=== PATIENT | male | born 1970 | race African-American/Black ===

== ENCOUNTER 2017-11-13 20:23 | Emergency (ER) | payer SELFPAY ==
[~2017-11-13] VITALS: Ht 167.6 cm; Wt 75.0 kg
[~2017-11-13 20:23] MED LIST: CHLO.12%30 SSP; CLIN150 PO; OXYC20TA26 PO
[2017-11-13 21:07] VITALS: BP 124/71; PULSE 86; RESP 16; TEMP 98.9; O2SAT 94
--- NOTE | 2017-11-13 21:40 | PD ---
HPI Chief Complaint: OD/ Ingestion Time Seen by Provider: 21:24 Travel History International Travel<30 days: No Contact w/Intl Traveler<30days: No Traveled to known affect area: No History of Present Illness HPI 47yo M with no significant PMH was brought in [facility] for possible opiate overdose. Pt's friend called because he was unresponsive and pt was given 0.4mg of narcan. Said pt woke up immediately. Pt states he has been drinking alcohol and smoking marajuana. Maybe cocaine earlier today but no heroin or IVDA. Said his brother today so he was drinking. Denies any fever, chest pain, sob, n/v, abdominal pain, focal weakness or numbness. Denies any suicidal or homicidal ideations. PFSH Past Medical History Hx Anticoagulant Therapy: No Cardiovascular Problems: No Chemotherapy: No Cerebrovascular Accident: No Diabetes: No Diminished Hearing: No Respiratory: No Tetanus Vaccination: Unknown Influenza Vaccination: No Past Surgical History Hysterectomy: No Other Surgery: Yes (HERNIA REPAIR) Social History Alcohol Use: Yes Tobacco Use: Yes (3/4 CIG/DAY) Substance Use: Yes (marijuana, COCAINE) Allergies-Medications (Allergen,Severity, Reaction): Coded Allergies: No Known Allergies (Verified Adverse Reaction, Unknown, 11/13/17) Reported Meds & Prescriptions Reported Meds & Active Scripts Active Review of Systems Except as stated in HPI: all other systems reviewed are Neg Physical Exam Narrative GENERAL: 47yo M not in distress. +Alcohol on breath. SKIN: Focused skin assessment warm/dry. HEAD: Atraumatic. Normocephalic. EYES: Pupils equal and round at 4mm bilaterally. EOMI. ENT: No nasal bleeding or discharge. Mucous membranes pink and moist. NECK: Trachea midline. No JVD. CARDIOVASCULAR: Regular rate and rhythm. No murmur appreciated. RESPIRATORY: No accessory muscle use. Clear to auscultation. Breath sounds equal bilaterally. GASTROINTESTINAL: Abdomen soft, non-tender, nondistended. MUSCULOSKELETAL: No obvious deformities. No clubbing. No cyanosis. No edema. NEUROLOGICAL: Awake and alert. No obvious cranial nerve deficits. Motor grossly within normal limits. Normal speech. PSYCHIATRIC: Appropriate mood and affect; insight and judgment normal. Data Data Last Documented VS Vital Signs Date Time Temp Pulse Resp B/P (MAP) Pulse Ox O2 Delivery O2 Flow Rate FiO2 11/13/17 21:13 95 Room Air 11/13/17 21:07 98.9 86 16 124/71 (88) Orders Orders Drug Screen, Random Urine (11/13/17 22:24) Ed Discharge Order (11/13/17 23:17) Labs Laboratory Tests Test 11/13/17 22:25 Urine Opiates Screen NEG Urine Barbiturates Screen NEG Urine Amphetamines Screen NEG Urine Benzodiazepines Screen NEG Urine Cocaine Screen POS Urine Cannabinoids Screen POS MDM Medical Decision Making Medical Screen Exam Complete: Yes Emergency Medical Condition: Yes Differential Diagnosis Alcohol intoxication vs. polysubstance abuse Narrative Course 47yo M was found to be unresponsive by friend and responded to narcan given by [facility]. Pt is awake and alert and denies any complaints. Pt admits to drinking alcohol but denies opioids. No signs of trauma. Pt has been observed in the ED for almost 3 hours and ambulating in the ED without any need for more narcan. Denies any complaints and wants to go home. Pt is ambulating without assistance. He requested Urine tox and is is positive for cocaine and cannbinoids but negative for opiates. Diagnosis Primary Impression: Drug use Patient Instructions: General Instructions Departure Forms: Tests/Procedures Additional Instructions: Please follow up with your primary care physician in 3-7 days. Return to the ED if symptoms worsen. Med/Other Pt SpecificInfo: No Change to Meds Disposition: 01 DISCHARGE HOME Condition: Stable Nataliya Warner Nov 13, 2017 21:40
== END 2017-11-13 23:37 | disposition home or self-care (01) ==
LOC: NEPD 20:23
DX: F14.90 Cocaine use, unspecified, uncomplicated (principal); F12.90 Cannabis use, unspecified, uncomplicated; F17.210 Nicotine dependence, cigarettes, uncomplicated
CPT/HCPCS: 80307; 99283